=== PATIENT | male | born 1980 | race Caucasian/White ===

== ENCOUNTER 2016-12-10 15:16 | Emergency (ER) | payer MEDICAID, OTHER ==
--- NOTE | 2016-12-10 16:05 | EDDOCDS ---
Nurse's Notes [facility] Name: Jenaro Wong Age: 36 yrs Sex: Male : 1980 Arrival Date: 12/10/2016 Time: 15:16 Bed Triage 1 Private MD: Ari Kelly W Diagnosis: Unilateral inguinal hernia, without obstruction or gangrene-RIGHT Presentation: 12/10 15:20 Presenting complaint: Patient states: "I think I have a hernia." Reports sudden onset ead of rlq pain after heavy lifting at work. Adult Sepsis Screening: The patient does not have new or worsening altered mentation. Patient's respiratory rate is less than 22. Systolic blood pressure is greater than 100. Patient has a qSOFA score of 0- Negative Sepsis Screen. Suicide/Homicide risk assessment- the patient denies having any suicidal and/or homicidal ideations and does not present with any other emotional, behavioral or mental health complaints. 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 Transition of care: patient was not received from another setting of care. 15:20 Acuity: ZEENAT Level 3 ead 15:20 Method Of Arrival: Walkin/Carried/Asstd ead Triage Assessment: 15:21 General: Appears in no apparent distress, comfortable, Behavior is appropriate for age, ead cooperative. Pain: Location: right lower quadrant Pain currently is 4 out of 10 on a pain scale. GI: Reports lower abdominal pain. GI: Reports noticed swelling to site of pain when pain initially started, states swelling has gone down since. Derm: Skin is pink, warm & dry. 15:22 Pt Declines HIV testing. ead Historical: - Allergies: no known allergies; - Home Meds: 1. none - PMHx: none; - PSHx: none; - Social history: Smoking status: Patient uses tobacco products, current every day smoker. No barriers to communication noted, The patient speaks fluent Eritrean, Speaks appropriately for age. - Family history: Not pertinent. - : The pt / caregiver states he / she is not on anticoagulants. Home medication list is obtained from the patient. - Exposure Risk Screening:: None identified. Screenin:01 Screening information is obtained from the patient. Fall risk: No risks identified. ead Assistance ADL's: requires no assistance with activities of daily living. Abuse/DV Screen: The patient / caregiver reports he/she is: not in a situation that causes fear, pain or injury. Nutritional screening: No deficits noted. Advance Directives: Currently, there is no health care proxy. There is no Power of [employer]. home support is adequate. Assessment: 16:01 General: Appears in no apparent distress, comfortable. Respiratory: Airway is patent ead Respiratory effort is even, unlabored. GI: Abdomen is non- distended. GI: Reports lower abdominal pain. Derm: Skin is pink, warm & dry. Vital Signs: 15:17 BP 131 / 78; Pulse 80; Resp 18 S; Temp 97.6(O); Pulse Ox 98% on R/A; Weight 78.47 kg dd6 (R); Height 5 ft. 6 in. (167.64 cm) (R); 15:17 Body Mass Index 27.92 (78.47 kg, 167.64 cm) dd6 Vitals: 15:17 Log In Time: December 10, 2016 at 15:15. dd6 ED Course: 15:16 Patient visited by Andre Black PCA. dd6 15:16 Patient moved to Waiting dd6 15:17 Ari Kelly is Private Physician. dd6 15:18 Patient moved to Pre RCE dd6 15:21 Triage Initiated ead 15:37 Patient moved to Triage 1 ead 15:40 Inocente Ventura PA is PHCP. btw 15:40 Bashir Kent DO is Attending Physician. btw 15:40 Patient visited by Inocente Ventura PA. btw 15:50 Pasquale Lindsey DO is Referral Physician. btw 16:01 The patient / caregiver is instructed regarding the plan of care and ED course. ead 16:01 No IV's were initiated during this patient's visit. No procedures done that require ead assistance. Order Results: There are currently no results for this order. Outcome: 15:51 Discharge ordered by Provider. btw 16:01 Discharge Assessment: Patient awake and alert. obeys commands, Oriented to person, ead place and time. patient administered narcotics - no. The following High Risk Discharge criteria are identified: None. Discharged to home ambulatory. Condition: unchanged. Discharge instructions given to patient, Instructed on discharge instructions, follow up and referral plans. Demonstrated understanding of instructions, Pt was receptive of discharge instructions/ teaching. No special radiology studies were completed. Property sent home with patient. 16:03 Patient left the ED. ead Signatures: Andre Black, MUSIC JOURNALIST MUSIC JOURNALIST dd6 Inocente Ventura PA PA btw Dunaway, Emily,RN RN ead MTDD
--- NOTE | 2016-12-10 16:05 | EDDOCDS ---
Physician Documentation [facility] Name: Jenaro Wong Age: 36 yrs Sex: Male : 1980 Arrival Date: 12/10/2016 Time: 15:16 Bed Triage 1 Private MD: Ari Kelly W Disposition: 12/10/16 15:51 Discharged to Home/Self Care. Impression: Unilateral inguinal hernia, without obstruction or gangrene - RIGHT. - Condition is Stable. - Discharge Instructions: Inguinal Hernia, Adult. - Medication Reconciliation, Local Pharmacy Hours, Work Release Form - 1 day form. - Follow up: Pasquale Lindsey DO; When: Call to arrange an appointment; Reason: Further diagnostic work-up, Recheck today's complaints, Continuance of care. - Problem is new. - Symptoms are unchanged. Historical: - Allergies: no known allergies; - Home Meds: 1. none - PMHx: none; - PSHx: none; - Social history: Smoking status: Patient uses tobacco products, current every day smoker. No barriers to communication noted, The patient speaks fluent Israeli, Speaks appropriately for age. - Family history: Not pertinent. - : The pt / caregiver states he / she is not on anticoagulants. Home medication list is obtained from the patient. - Exposure Risk Screening:: None identified. Vital Signs: 12/10 15:17 BP 131 / 78; Pulse 80; Resp 18 S; Temp 97.6(O); Pulse Ox 98% on R/A; Weight 78.47 kg / dd6 173 lbs (R); Height 5 ft. 6 in. (167.64 cm) (R); 15:17 Body Mass Index 27.92 (78.47 kg, 167.64 cm) dd6 Signatures: Inocente Ventura PA PA btw Dunaway, Emily,RN RN ead MTDD
--- NOTE | 2016-12-12 17:04 | EDDOCDS ---
Physician Documentation [facility] Name: Jenaro Wong Age: 36 yrs Sex: Male : 1980 Arrival Date: 12/10/2016 Time: 15:16 Bed Triage 1 Private MD: Ari Kelly W Disposition: 12/10/16 15:51 Discharged to Home/Self Care. Impression: Unilateral inguinal hernia, without obstruction or gangrene - RIGHT. - Condition is Stable. - Discharge Instructions: Inguinal Hernia, Adult. - Medication Reconciliation, Local Pharmacy Hours, Work Release Form - 1 day form. - Follow up: Pasquale Lindsey DO; When: Call to arrange an appointment; Reason: Further diagnostic work-up, Recheck today's complaints, Continuance of care. - Problem is new. - Symptoms are unchanged. Historical: - Allergies: no known allergies; - Home Meds: 1. none - PMHx: none; - PSHx: none; - Social history: Smoking status: Patient uses tobacco products, current every day smoker. No barriers to communication noted, The patient speaks fluent Citizen Of [place], Speaks appropriately for age. - Family history: Not pertinent. - : The pt / caregiver states he / she is not on anticoagulants. Home medication list is obtained from the patient. - Exposure Risk Screening:: None identified. Vital Signs: 12/10 15:17 BP 131 / 78; Pulse 80; Resp 18 S; Temp 97.6(O); Pulse Ox 98% on R/A; Weight 78.47 kg / dd6 173 lbs (R); Height 5 ft. 6 in. (167.64 cm) (R); 15:17 Body Mass Index 27.92 (78.47 kg, 167.64 cm) dd6 MDM: 16:08 Financial registration complete. zo 16:08 [facility] Payment Agreement was scanned into [employer] and attached to record. zo 12/11 02:42 T-Sheet-- Draft Copy was scanned into [employer] and attached to record. hs2 Signatures: Amadou Mcbride Brandon, PA PA btw Dunaway, Emily,RN RN eaMaura Smith, Reg Reg hs2 The chart was reviewed and I authenticate all verbal orders and agree with the evaluation and treatment provided.Attachments: 12/10 16:08 [facility] [place] Payment Agreement zo 12/11 02:42 T-Sheet-- Draft Copy hs2 Chart Complete MTDD
--- NOTE | 2016-12-12 17:04 | EDDOCDS ---
Nurse's Notes [facility] Name: Jenaro Wong Age: 36 yrs Sex: Male : 1980 Arrival Date: 12/10/2016 Time: 15:16 Bed Triage 1 Private MD: Ari Kelly W Diagnosis: Unilateral inguinal hernia, without obstruction or gangrene-RIGHT Presentation: 12/10 15:20 Presenting complaint: Patient states: "I think I have a hernia." Reports sudden onset ead of rlq pain after heavy lifting at work. Adult Sepsis Screening: The patient does not have new or worsening altered mentation. Patient's respiratory rate is less than 22. Systolic blood pressure is greater than 100. Patient has a qSOFA score of 0- Negative Sepsis Screen. Suicide/Homicide risk assessment- the patient denies having any suicidal and/or homicidal ideations and does not present with any other emotional, behavioral or mental health complaints. 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 Transition of care: patient was not received from another setting of care. 15:20 Acuity: ZEENAT Level 3 ead 15:20 Method Of Arrival: Walkin/Carried/Asstd ead Triage Assessment: 15:21 General: Appears in no apparent distress, comfortable, Behavior is appropriate for age, ead cooperative. Pain: Location: right lower quadrant Pain currently is 4 out of 10 on a pain scale. GI: Reports lower abdominal pain. GI: Reports noticed swelling to site of pain when pain initially started, states swelling has gone down since. Derm: Skin is pink, warm & dry. 15:22 Pt Declines HIV testing. ead Historical: - Allergies: no known allergies; - Home Meds: 1. none - PMHx: none; - PSHx: none; - Social history: Smoking status: Patient uses tobacco products, current every day smoker. No barriers to communication noted, The patient speaks fluent Yoruba, Speaks appropriately for age. - Family history: Not pertinent. - : The pt / caregiver states he / she is not on anticoagulants. Home medication list is obtained from the patient. - Exposure Risk Screening:: None identified. Screenin:01 Screening information is obtained from the patient. Fall risk: No risks identified. ead Assistance ADL's: requires no assistance with activities of daily living. Abuse/DV Screen: The patient / caregiver reports he/she is: not in a situation that causes fear, pain or injury. Nutritional screening: No deficits noted. Advance Directives: Currently, there is no health care proxy. There is no Power of [employer] Practitioner. home support is adequate. Assessment: 16:01 General: Appears in no apparent distress, comfortable. Respiratory: Airway is patent ead Respiratory effort is even, unlabored. GI: Abdomen is non- distended. GI: Reports lower abdominal pain. Derm: Skin is pink, warm & dry. Vital Signs: 15:17 BP 131 / 78; Pulse 80; Resp 18 S; Temp 97.6(O); Pulse Ox 98% on R/A; Weight 78.47 kg dd6 (R); Height 5 ft. 6 in. (167.64 cm) (R); 15:17 Body Mass Index 27.92 (78.47 kg, 167.64 cm) dd6 Vitals: 15:17 Log In Time: December 10, 2016 at 15:15. dd6 ED Course: 15:16 Patient visited by Andre Black PCA. dd6 15:16 Patient moved to Waiting dd6 15:17 Ari Kelly is Private Physician. dd6 15:18 Patient moved to Pre RCE dd6 15:21 Triage Initiated ead 15:37 Patient moved to Triage 1 ead 15:40 Inocente Ventura PA is PHCP. btw 15:40 Bashir Kent DO is Attending Physician. btw 15:40 Patient visited by Inocente Ventura PA. btw 15:50 Pasquale Lindsey DO is Referral Physician. btw 16:01 The patient / caregiver is instructed regarding the plan of care and ED course. ead 16:01 No IV's were initiated during this patient's visit. No procedures done that require ead assistance. 16:08 [facility] [place] Agreement was scanned into [employer] and attached to record. zo 12/11 02:42 T-Sheet-- Draft Copy was scanned into [employer] and attached to record. hs2 Order Results: There are currently no results for this order. Outcome: 12/10 15:51 Discharge ordered by Provider. btw 16:01 Discharge Assessment: Patient awake and alert. obeys commands, Oriented to person, ead place and time. patient administered narcotics - no. The following High Risk Discharge criteria are identified: None. Discharged to home ambulatory. Condition: unchanged. Discharge instructions given to patient, Instructed on discharge instructions, follow up and referral plans. Demonstrated understanding of instructions, Pt was receptive of discharge instructions/ teaching. No special radiology studies were completed. Property sent home with patient. 16:03 Patient left the ED. ead Signatures: Amadou Mcbride Daniell, GPS NAVIGATION INSTALLER GPS NAVIGATION INSTALLER dd6 Inocente Ventura PA PA btw Dunaway, Emily,RN RN ead Maura Spence, Reg Reg hs2 Chart Complete MTDD
--- NOTE | 2016-12-12 17:04 | EDDOCDS ---
Physician Documentation [facility] Name: Jenaro Wong Age: 36 yrs Sex: Male : 1980 Arrival Date: 12/10/2016 Time: 15:16 Bed Triage 1 Private MD: Ari Kelly W Disposition: 12/10/16 15:51 Discharged to Home/Self Care. Impression: Unilateral inguinal hernia, without obstruction or gangrene - RIGHT. - Condition is Stable. - Discharge Instructions: Inguinal Hernia, Adult. - Medication Reconciliation, Local Pharmacy Hours, Work Release Form - 1 day form. - Follow up: Pasquale Lindsey DO; When: Call to arrange an appointment; Reason: Further diagnostic work-up, Recheck today's complaints, Continuance of care. - Problem is new. - Symptoms are unchanged. Historical: - Allergies: no known allergies; - Home Meds: 1. none - PMHx: none; - PSHx: none; - Social history: Smoking status: Patient uses tobacco products, current every day smoker. No barriers to communication noted, The patient speaks fluent Emirati, Speaks appropriately for age. - Family history: Not pertinent. - : The pt / caregiver states he / she is not on anticoagulants. Home medication list is obtained from the patient. - Exposure Risk Screening:: None identified. Vital Signs: 12/10 15:17 BP 131 / 78; Pulse 80; Resp 18 S; Temp 97.6(O); Pulse Ox 98% on R/A; Weight 78.47 kg / dd6 173 lbs (R); Height 5 ft. 6 in. (167.64 cm) (R); 15:17 Body Mass Index 27.92 (78.47 kg, 167.64 cm) dd6 MDM: 16:08 Financial registration complete. zo 16:08 [facility] Payment Agreement was scanned into [employer] and attached to record. zo 12/11 02:42 T-Sheet-- Draft Copy was scanned into [employer] and attached to record. hs2 Signatures: Amadou Mcbride Brandon, PA PA btw Dunaway, Emily,RN RN eaMaura Smith, Reg Reg hs2 The chart was reviewed and I authenticate all verbal orders and agree with the evaluation and treatment provided.Attachments: 12/10 16:08 [place] [place] Agreement zo 12/11 02:42 T-Sheet-- Draft Copy hs2 Chart Complete MTDD
== END 2016-12-10 16:03 | disposition home or self-care (01) ==
LOC: M ED 15:16
DX: K40.90 Unilateral inguinal hernia, without obstruction or gangrene, not specified as recurrent (principal); Z72.0 Tobacco use

== ENCOUNTER 2016-12-17 17:55 | Emergency (ER) | payer OTHER ==
[2016-12-17] MEDS ORDERED: KETOROLAC 30 MG/ML VIAL (J1885) As Ordered ONE (21:00)
[2016-12-17 21:08] LABS: BASO % 0.4 % (0.0-1.0); EOS # 0.2 K/mm3 (0.0-0.50); EOS % 2.6 % (0.0-3.0); LARGE UNSTAINED CELL # 0.1 K/mm3 (0.0-0.4); LARGE UNSTAINED CELL % 1.7 % (0.0-4.0); LYMPH # 1.8 K/mm3 (1.5-4.5); LYMPH % 25.1 % (24.0-44.0); MEAN CORPUSCULAR HEMOGLOBIN 32.3 pg (27.0-33.0); MEAN CORPUSCULAR VOLUME 89.9 fl (80.0-96.0); MONO # 0.3 K/mm3 (0.0-0.8); MONO % 4.1 % (0.0-5.0); NEUTROPHILS # 4.8 K/mm3 (1.8-7.7); NEUTROPHILS % 66.1 % (36.0-66.0); PLATELET COUNT, AUTOMATED 189 k/mm3 (150-450); WHITE BLOOD COUNT 7.2 K/mm3 (4.0-10.0)
[2016-12-17 21:31] LABS: ALBUMIN 4.4 GM/DL (3.2-5.2); ALBUMIN/GLOBULIN RATIO 1.63 (1.00-1.93); ALKALINE PHOSPHATASE 68 U/L (45-117); ALT/SGPT 47 U/L (12-78); AMYLASE 49 U/L (25-115); ANION GAP 8 MEQ/L (8-16); AST/SGOT 23 U/L (15-37); BILIRUBIN,DIRECT 0.1 MG/DL (0.0-0.2); BILIRUBIN,TOTAL 0.5 MG/DL (0.2-1.0); BLOOD UREA NITROGEN 14 MG/DL (7-18); CALCIUM LEVEL 9.1 MG/DL (8.5-10.1); CARBON DIOXIDE LEVEL 30 MEQ/L (21-32); CHLORIDE LEVEL 104 MEQ/L (98-107); CREATININE FOR GFR 1.02 MG/DL (0.70-1.30); GLOMERULAR FILTRATION RATE > 60.0 (>60); GLUCOSE, FASTING 88 MG/DL (70-105); POTASSIUM SERUM 4.1 MEQ/L (3.5-5.1); SODIUM LEVEL 142 MEQ/L (136-145); TOTAL PROTEIN 7.1 GM/DL (6.4-8.2)
[2016-12-17] MEDS ORDERED: ISOVUE-370 76% 100ML VIAL (Q9967) As Ordered ONE (22:04)
--- NOTE | 2016-12-17 23:00 | REPUSA ---
CT of the abdomen and pelvis with contrast Clinical statement: Pain. Rule out inguinal hernia. Technique: Multiple axial CT images were obtained from the base of the lungs through the floor of the pelvis utilizing 5 mm axial slices after administration of nonionic intravenous contrast. Coronal an d sagittal reconstructions were also obtained. No comparison is available. Findings: Chest: The visualized lung bases are clear. Abdomen: The liver, spleen, pancreas, kidneys, gallbladder, and adrenal glands are unremarkable. The aorta is within normal limits. There is no evidence of abdominal lymphadenopathy or ascites. Pelvis: The bowel is unremarkable, with no obstructive or inflammatory changes. The appendix is egt l. The urinary bladder is within normal limits. The other pelvic structures appear grossly intact. Th ere is no evidence of pelvic lymphadenopathy or ascites. There is no evidence of any hernias. Bones: There are no suspicious osseous abnormalities seen. Impression: Unremarkable CT examination of the abdomen and pelvis.
[2016-12-17] MEDS ORDERED: traMADol 50 MG TAB As Ordered ONE (23:43)
--- NOTE | 2016-12-17 23:55 | EDDOCDS ---
Nurse's Notes [facility] Name: Jenaro Wong Age: 36 yrs Sex: Male : 1980 Arrival Date: 12/17/2016 Time: 17:55 Bed I5 / M5 Private MD: Ari Kelly Diagnosis: Lower abdominal pain, unspecified-RIGHT, POSSIBLE MUSCLE STRAIN Presentation: 12/17 18:05 Presenting complaint: Patient states: pt c/o rlq pain since last Saturday after heavy ead lifting. Pt seen here then and referred to follow up with Dr. Lindsey. Appointment with Dr. Lindsey scheduled for the of this month. Pt reports pain is worsened. Adult Sepsis Screening: The patient does not have new or worsening altered mentation. Patient's respiratory rate is less than 22. Systolic blood pressure is greater than 100. Patient has a qSOFA score of 0- Negative Sepsis Screen. Suicide/Homicide risk assessment- the patient denies having any suicidal and/or homicidal ideations and does not present with any other emotional, behavioral or mental health complaints. Status: Patient is not a field service manager or dependent. Transition of care: patient was not received from another setting of care. 18:05 Acuity: ZEENAT Level 3 ead 18:05 Method Of Arrival: Walkin/Carried/Asstd ead Triage Assessment: 18:06 General: Appears in no apparent distress, uncomfortable, Behavior is appropriate for ead age, cooperative. Pain: Location: right lower quadrant, right femoral area and right inguinal area Pain currently is 7 out of 10 on a pain scale. HIV screening NA for this visit Offered previously. GI: Reports lower abdominal pain, nausea, Denies vomiting. : Denies pain with urination. Derm: Skin is pink, warm & dry. Historical: - Allergies: no known allergies; - Home Meds: 1. none - PMHx: none; - PSHx: none; - Social history: Smoking status: Patient uses tobacco products, current every day smoker. No barriers to communication noted, The patient speaks fluent Bruneian, Speaks appropriately for age. - Family history: Not pertinent. - : The pt / caregiver states he / she is not on anticoagulants. Home medication list is obtained from the patient. - Exposure Risk Screening:: None identified. Screenin:16 Screening information is obtained from the patient. Fall risk: No risks identified. jmb Assistance ADL's: requires no assistance with activities of daily living. Abuse/DV Screen: The patient / caregiver reports he/she is: not in a situation that causes fear, pain or injury. Nutritional screening: No deficits noted. home support is adequate. 23:53 Advance Directives: Currently, there is no health care proxy. There is no active DNR cp1 order. Assessment: 22:16 General: Appears in no apparent distress, Behavior is appropriate for age, cooperative. jmb Pain: Location: pelvis Pain currently is 3 out of 10 on a pain scale. Neurological: Level of Consciousness is awake, alert, obeys commands, Oriented to person, place, time, Speech is normal, Facial symmetry appears normal, Facial symmetry: tongue is midline. Cardiovascular: Capillary refill < 3 seconds Heart tones present Pulses are all present. Rhythm is regular. Respiratory: Airway is patent Respiratory effort is even, unlabored, Respiratory pattern is regular, symmetrical, Breath sounds are clear bilaterally. GI: Abdomen is non- distended Bowel sounds present X 4 quads. Abd is soft X 4 quads. Derm: Skin is pink, warm & dry. Musculoskeletal: Range of motion intact in all extremities. 23:05 General: Appears in no apparent distress, comfortable, Behavior is appropriate for age, jmb cooperative. Neurological: Level of Consciousness is awake, alert, obeys commands, Oriented to person, place, time. Respiratory: Airway is patent Respiratory effort is even, unlabored, Respiratory pattern is regular, symmetrical. Vital Signs: 17:56 BP 138 / 80; Pulse 74; Resp 18 S; Temp 99.3(O); Pulse Ox 100% on R/A; Weight 78.47 kg gr2 (R); Height 5 ft. 6 in. (167.64 cm) (R); Pain 6/10; 19:35 BP 126 / 76; Pulse 55; Resp 18; Temp 98.7(TE); Pulse Ox 98% on R/A; Pain 7/10; ar3 23:52 BP 135 / 67; Pulse 66; Resp 18; Temp 97.9(O); Pulse Ox 97% on R/A; Pain 3/10; cp1 17:56 Body Mass Index 27.92 (78.47 kg, 167.64 cm) gr2 Vitals: 17:56 Log In Time: December 17, 2016 at 17:56. gr2 ED Course: 17:56 Patient visited by Finn Pierre. gr2 17:56 Ari Kelly is Private Physician. gr2 17:56 Patient moved to Waiting gr2 17:58 Patient visited by Finn Pierre. gr2 17:58 Patient moved to Pre RCE gr2 18:06 Triage Initiated ead 19:37 Patient visited by Haley Thomas PCA. ar3 19:45 UA Sent. bnb 20:14 Patient moved to Triage 1 ms18 20:29 Son Bernard RPA-C is PHCP. ck7 20:29 Eduin William DO is Attending Physician. ck7 20:29 Patient visited by Son Bernard RPA-C. ck7 20:45 Patient moved to I5 / M5 ar3 20:45 Urine Culture Sent. ar3 20:59 Amylase Sent. cp1 20:59 Basic Metabolic Profile Sent. cp1 20:59 CBC with Diff Sent. cp1 20:59 Lipase Sent. cp1 20:59 Liver Profile Sent. cp1 20:59 Inserted saline lock: 20 gauge in left antecubital area and blood collected. The cp1 patient tolerated the procedure well. 21:04 Patient visited by Son Bernard RPA-C. ck7 21:40 Patient visited by Son Bernard RPA-C. ck7 21:47 [facility] Payment Agreement was scanned into [employer] and attached to record. zo 22:16 The patient / caregiver is instructed regarding the plan of care and ED course. jmb 22:16 No procedures done that require assistance. jmb 22:17 Patient visited by Jaren Abebe RN. jmb 22:34 Patient visited by Goldie Blake LPN. cp1 23:05 Patient visited by Jaren Abebe RN. jmb 23:08 CT ABD & PELVIS: IV Contrast Only Returned. EDMS 23:36 Patient visited by Son Bernard RPA-C. ck7 23:43 Ari Kelly is Referral Physician. ck7 23:53 Discontinued lock bleeding controlled, pressure dressing applied, No redness/swelling cp1 at site. Administered Medications: 21:12 Drug: NS 0.9% 1000 ml [sodium chloride 0.9 % intravenous solution] Route: IV; Rate: jmb bolus; Site: left antecubital; 23:53 Follow up: IV Status: Completed infusion cp1 21:12 Drug: ketorolac 30 mg [ketorolac 30 mg/mL (1 mL) injection solution (1 mL)] Route: IVP; jmb Site: left antecubital; 22:34 Follow up: Response: Pain is decreased cp1 23:53 Follow up: Response: Pain is decreased cp1 23:44 Drug: traMADol 50mg- 4 pack 1 packets [tramadol 50 mg tablet (1 tabs)] {Co-Signature: cp1 jmb (Jaren Abebe RN).} Route: PO; 23:53 Follow up: Response: Pt left department before re-evaluation is appropriate cp1 Order Results: Lab Order: UA; SPEC'M 12/17/16 19:43 Test: APPEARANCE, URINE; Value: CLEAR; Range: CLEAR; Status: F Test: COLOR, URINE; Value: STRAW; Range: YELLOW; Status: F Test: PH,URINE; Value: 6.0; Range: 5.0-9.0; Units: UNITS; Status: F Test: SPECIFIC GRAVITY URINE AUTO; Value: 1.006; Range: 1.002-1.035; Status: F Test: PROTEIN, URINE AUTO; Value: NEGATIVE; Range: NEGATIVE; Units: mg/dL; Status: F Test: GLUCOSE, URINE (UA) AUTO; Value: NEGATIVE; Range: NEGATIVE; Units: mg/dL; Status: F Test: KETONE, URINE AUTO; Value: NEGATIVE; Range: NEGATIVE; Units: mg/dL; Status: F Test: UROBILINOGEN, URINE AUTO; Value: 0.2; Range: 0.0-2.0; Units: mg/dL; Status: F Test: BILIRUBIN, URINE AUTO; Value: NEGATIVE; Range: NEGATIVE; Status: F Test: NITRITE, URINE AUTO; Value: NEGATIVE; Range: NEGATIVE; Status: F Test: LEUKOCYTE ESTERASE, URINE AUTO; Value: NEGATIVE; Range: NEGATIVE; Status: F Test: BLOOD, URINE BLOOD; Value: 1+; Range: NEGATIVE; Abnormal: Above high normal; Status: F Test: WBC, URINE AUTO; Value: 0; Range: 0-3; Units: /HPF; Status: F Test: RBC, URINE AUTO; Value: 3; Range: 0-3; Units: /HPF; Status: F Test: BACTERIA, URINE AUTO; Value: NEGATIVE; Range: NEGATIVE; Status: F Test: SQUAMOUS EPITHELIAL CELL UR AU; Value: 0; Range: 0-6; Units: /HPF; Status: F Test: HYALINE CAST, URINE AUTO; Value: 0; Range: 0-1; Units: /LPF; Status: F Lab Order: Amylase; SPEC'M 12/17/16 20:47 Test: AMYLASE; Value: 49; Range: 25-115; Units: U/L; Status: F Lab Order: Basic Metabolic Profile; SPEC'M 12/17/16 20:47 Test: GLUCOSE, FASTING; Value: 88; Range: 70-105; Units: MG/DL; Status: F Test: BLOOD UREA NITROGEN; Value: 14; Range: 7-18; Units: MG/DL; Status: F Test: CREATININE FOR GFR; Value: 1.02; Range: 0.70-1.30; Units: MG/DL; Status: F Test: GLOMERULAR FILTRATION RATE; Value: > 60.0; Range: >60; Status: F Test: SODIUM LEVEL; Value: 142; Range: 136-145; Units: MEQ/L; Status: F Test: POTASSIUM SERUM; Value: 4.1; Range: 3.5-5.1; Units: MEQ/L; Status: F Test: CHLORIDE LEVEL; Value: 104; Range: 98-107; Units: MEQ/L; Status: F Test: CARBON DIOXIDE LEVEL; Value: 30; Range: 21-32; Units: MEQ/L; Status: F Test: ANION GAP; Value: 8; Range: 8-16; Units: MEQ/L; Status: F Test: CALCIUM LEVEL; Value: 9.1; Range: 8.5-10.1; Units: MG/DL; Status: F Test Note: ; Units are mL/min/1.73 m2 Chronic Kidney Disease Staging per NKF: Stage I & II GFR >=60 Normal to Mildly Decreased Stage III GFR 30-59 Moderately Decreased Stage IV GFR 15-29 Severely Decreased Stage V GFR <15 Very Little GFR Left ESRD GFR <15 on [employer] Lab Order: CBC with Diff; SPEC'M 12/17/16 20:47 Test: WHITE BLOOD COUNT; Value: 7.2; Range: 4.0-10.0; Units: K/mm3; Status: F Test: RED BLOOD COUNT; Value: 5.20; Range: 4.30-6.10; Units: M/mm3; Status: F Test: HEMOGLOBIN; Value: 16.8; Range: 14.0-18.0; Units: g/dl; Status: F Test: HEMATOCRIT; Value: 46.7; Range: 42.0-52.0; Units: %; Status: F Test: MEAN CORPUSCULAR VOLUME; Value: 89.9; Range: 80.0-96.0; Units: fl; Status: F Test: MEAN CORPUSCULAR HEMOGLOBIN; Value: 32.3; Range: 27.0-33.0; Units: pg; Status: F Test: MEAN CORPUSCULAR HGB CONC; Value: 36.0; Range: 32.0-36.5; Units: g/dl; Status: F Test: RED CELL DISTRIBUTION WIDTH; Value: 12.0; Range: 11.5-14.5; Units: %; Status: F Test: PLATELET COUNT, AUTOMATED; Value: 189; Range: 150-450; Units: k/mm3; Status: F Test: NEUTROPHILS %; Value: 66.1; Range: 36.0-66.0; Abnormal: Above high normal; Units: %; Status: F Test: LYMPH %; Value: 25.1; Range: 24.0-44.0; Units: %; Status: F Test: MONO %; Value: 4.1; Range: 0.0-5.0; Units: %; Status: F Test: EOS %; Value: 2.6; Range: 0.0-3.0; Units: %; Status: F Test: BASO %; Value: 0.4; Range: 0.0-1.0; Units: %; Status: F Test: LARGE UNSTAINED CELL %; Value: 1.7; Range: 0.0-4.0; Units: %; Status: F Test: NEUTROPHILS #; Value: 4.8; Range: 1.8-7.7; Units: K/mm3; Status: F Test: LYMPH #; Value: 1.8; Range: 1.5-4.5; Units: K/mm3; Status: F Test: MONO #; Value: 0.3; Range: 0.0-0.8; Units: K/mm3; Status: F Test: EOS #; Value: 0.2; Range: 0.0-0.50; Units: K/mm3; Status: F Test: BASO #; Value: 0.0; Range: 0.0-0.2; Units: K/mm3; Status: F Test: LARGE UNSTAINED CELL #; Value: 0.1; Range: 0.0-0.4; Units: K/mm3; Status: F Lab Order: Lipase; SPEC'M 12/17/16 20:47 Test: LIPASE; Value: 85; Range: 73-393; Units: U/L; Status: F Lab Order: Liver Profile; SPEC'M 12/17/16 20:47 Test: AST/SGOT; Value: 23; Range: 15-37; Units: U/L; Status: F Test: ALT/SGPT; Value: 47; Range: 12-78; Units: U/L; Status: F Test: ALKALINE PHOSPHATASE; Value: 68; Range: 45-117; Units: U/L; Status: F Test: BILIRUBIN,TOTAL; Value: 0.5; Range: 0.2-1.0; Units: MG/DL; Status: F Test: BILIRUBIN,DIRECT; Value: 0.1; Range: 0.0-0.2; Units: MG/DL; Status: F Test: TOTAL PROTEIN; Value: 7.1; Range: 6.4-8.2; Units: GM/DL; Status: F Test: ALBUMIN; Value: 4.4; Range: 3.2-5.2; Units: GM/DL; Status: F Test: ALBUMIN/GLOBULIN RATIO; Value: 1.63; Range: 1.00-1.93; Status: F Radiology Order: CT ABD & PELVIS: IV Contrast Only Test: CT ABD & PELVIS: IV Contrast Only REASON FOR EXAMINATION: R/O INGUINAL HERNIA; ; CT of the abdomen and pelvis with contrast; Clinical statement: Pain. Rule out inguinal hernia.; Technique: Multiple axial CT images were obtained from the base of the lungs through the floor of the; pelvis utilizing 5 mm axial slices after administration of nonionic intravenous contrast. Coronal an; d sagittal reconstructions were also obtained.; No comparison is available.; Findings:; Chest: The visualized lung bases are clear.; Abdomen: The liver, spleen, pancreas, kidneys, gallbladder, and adrenal glands are unremarkable. The; aorta is within normal limits. There is no evidence of abdominal lymphadenopathy or ascites.; Pelvis: The bowel is unremarkable, with no obstructive or inflammatory changes. The appendix is egt; l. The urinary bladder is within normal limits. The other pelvic structures appear grossly intact. Th; ere is no evidence of pelvic lymphadenopathy or ascites. There is no evidence of any hernias.; Bones: There are no suspicious osseous abnormalities seen.; Impression: Unremarkable CT examination of the abdomen and pelvis.; ; Outcome: 23:43 Discharge ordered by Provider. ck7 23:54 Discharge Assessment: Patient awake, alert and oriented x 3. No cognitive and/or cp1 functional deficits noted. Patient verbalized understanding of disposition instructions. patient administered narcotics - no. The following High Risk Discharge criteria are identified: None. Discharged to home ambulatory. Condition: stable Condition: improved. Discharge instructions given to patient, Instructed on discharge instructions, follow up and referral plans. medication usage, no driving heavy equipment, Demonstrated understanding of instructions, medications, Pt was receptive of discharge instructions/ teaching. Prescriptions given X 2. CT Study completed. Property sent home with patient. :Personal belongings accompany Pt. 23:54 Patient left the ED. cp1 Signatures: Dispatcher [employer] EDMS Amadou Mcbride Alicia, BOTTOM PRESSER BOTTOM PRESSER ar3 Goldie Blake,PAPERHANGER ASSISTANT PAPERHANGER ASSISTANT cp1 Son Bernard, RPA-C RPA-Cck7 Finn Pierre gr2 Jaren Abebe,RN RN Gauri Gregorio RN RN ead Smith, Mallory, RN RN ms18 Eve Abebe, BOTTOM PRESSER BOTTOM PRESSER bnb Jaren brownlee MTDD
--- NOTE | 2016-12-17 23:55 | EDDOCDS ---
Physician Documentation [facility] Name: Jenaro Wong Age: 36 yrs Sex: Male : 1980 Arrival Date: 12/17/2016 Time: 17:55 Bed I5 / M5 Private MD: Ari Kelly Disposition: 12/17/16 23:43 Discharged to Home/Self Care. Impression: Lower abdominal pain, unspecified - RIGHT, POSSIBLE MUSCLE STRAIN. - Condition is Stable. - Discharge Instructions: Abdominal Pain, Adult. - Prescriptions for Ibuprofen 600 mg Oral Tablet - take 1 tablet by ORAL route every 6 hours As needed take with food; 30 tablet. Tramadol 50 mg Oral Tablet - take 1 tablet by ORAL route 4 times per day As needed MDD: 4 tabs; 10 tablet. - Medication Reconciliation, Local Pharmacy Hours form. - Follow up: Ari Kelly; When: 2 - 3 days; Reason: Recheck today's complaints, Continuance of care. - Problem is new. - Symptoms have improved. - Notes: USE MEDICATIONS INSTRUTCED, FOLLOW UP WITH YOUR DOCTOR, RETURN TO THE ER IF THE SYMPTOMS WORSEN OR BECOME CONCERNING Historical: - Allergies: no known allergies; - Home Meds: 1. none - PMHx: none; - PSHx: none; - Social history: Smoking status: Patient uses tobacco products, current every day smoker. No barriers to communication noted, The patient speaks fluent Korean, Speaks appropriately for age. - Family history: Not pertinent. - : The pt / caregiver states he / she is not on anticoagulants. Home medication list is obtained from the patient. - Exposure Risk Screening:: None identified. Vital Signs: 12/17 17:56 BP 138 / 80; Pulse 74; Resp 18 S; Temp 99.3(O); Pulse Ox 100% on R/A; Weight 78.47 kg / gr2 173 lbs (R); Height 5 ft. 6 in. (167.64 cm) (R); Pain 6/10; 19:35 BP 126 / 76; Pulse 55; Resp 18; Temp 98.7(TE); Pulse Ox 98% on R/A; Pain 7/10; ar3 23:52 BP 135 / 67; Pulse 66; Resp 18; Temp 97.9(O); Pulse Ox 97% on R/A; Pain 3/10; cp1 17:56 Body Mass Index 27.92 (78.47 kg, 167.64 cm) gr2 MDM: 19:38 UA Ordered. EDMS 20:30 UA Reviewed. ck7 20:42 Undress patient appropriately for examination ordered. ck7 20:42 IV Saline Lock ordered. ck7 20:42 NS 0.9% 1000 ml IV at bolus once ordered. ck7 20:42 ketorolac 30 mg IVP once ordered. ck7 20:43 Amylase Ordered. EDMS 20:43 Basic Metabolic Profile Ordered. EDMS 20:43 CBC with Diff Ordered. EDMS 20:43 Lipase Ordered. EDMS 20:43 Liver Profile Ordered. EDMS 20:43 Urine Culture Ordered. EDMS 20:44 NOTHING BY MOUTH+DIET ordered. EDMS 20:44 CT ABD & PELVIS: IV Contrast Only Ordered. EDMS 21:40 CBC with Diff Reviewed. ck7 21:40 Amylase Reviewed. ck7 21:40 Basic Metabolic Profile Reviewed. ck7 21:40 Lipase Reviewed. ck7 21:40 Liver Profile Reviewed. ck7 21:46 Financial registration complete. zo 21:47 [facility] Payment Agreement was scanned into [employer] and attached to record. zo 23:22 CT ABD & PELVIS: IV Contrast Only Reviewed. ck7 23:37 traMADol 50mg- 4 pack 1 packets PO Per protocol; Dispense with patient. Take per ck7 package instructions. ordered. Administered Medications: 21:12 Drug: NS 0.9% 1000 ml [sodium chloride 0.9 % intravenous solution] Route: IV; Rate: jmb bolus; Site: left antecubital; 23:53 Follow up: IV Status: Completed infusion cp1 21:12 Drug: ketorolac 30 mg [ketorolac 30 mg/mL (1 mL) injection solution (1 mL)] Route: IVP; jmb Site: left antecubital; 22:34 Follow up: Response: Pain is decreased cp1 23:53 Follow up: Response: Pain is decreased cp1 23:44 Drug: traMADol 50mg- 4 pack 1 packets [tramadol 50 mg tablet (1 tabs)] {Co-Signature: cp1 jmb (Jaren Abebe RN).} Route: PO; 23:53 Follow up: Response: Pt left department before re-evaluation is appropriate cp1 Signatures: Dispatcher [employer] EDMS Reed, Zoeann zo Blake,Goldie,PAN DEVULCANIZER PAN DEVULCANIZER cp1 Son Bernard, RPA-C RPA-Cck7 Jaren Abebe,RN RN Gauri GregorioRN RN bruno brownlee The chart was reviewed and I authenticate all verbal orders and agree with the evaluation and treatment provided.Attachments: 21:47 [facility] Payment Agreement zo MTDD
--- NOTE | 2016-12-20 00:55 | EDDOCDS ---
Physician Documentation [facility] Name: Jenaro Wong Age: 36 yrs Sex: Male : 1980 Arrival Date: 12/17/2016 Time: 17:55 Bed I5 / M5 Private MD: Ari Kelly Disposition: 12/17/16 23:43 Discharged to Home/Self Care. Impression: Lower abdominal pain, unspecified - RIGHT, POSSIBLE MUSCLE STRAIN. - Condition is Stable. - Discharge Instructions: Abdominal Pain, Adult. - Prescriptions for Ibuprofen 600 mg Oral Tablet - take 1 tablet by ORAL route every 6 hours As needed take with food; 30 tablet. Tramadol 50 mg Oral Tablet - take 1 tablet by ORAL route 4 times per day As needed MDD: 4 tabs; 10 tablet. - Medication Reconciliation, Local Pharmacy Hours form. - Follow up: Ari Kelly; When: 2 - 3 days; Reason: Recheck today's complaints, Continuance of care. - Problem is new. - Symptoms have improved. - Notes: USE MEDICATIONS INSTRUTCED, FOLLOW UP WITH YOUR DOCTOR, RETURN TO THE ER IF THE SYMPTOMS WORSEN OR BECOME CONCERNING Historical: - Allergies: no known allergies; - Home Meds: 1. none - PMHx: none; - PSHx: none; - Social history: Smoking status: Patient uses tobacco products, current every day smoker. No barriers to communication noted, The patient speaks fluent [place] Verdean, Speaks appropriately for age. - Family history: Not pertinent. - : The pt / caregiver states he / she is not on anticoagulants. Home medication list is obtained from the patient. - Exposure Risk Screening:: None identified. Vital Signs: 12/17 17:56 BP 138 / 80; Pulse 74; Resp 18 S; Temp 99.3(O); Pulse Ox 100% on R/A; Weight 78.47 kg / gr2 173 lbs (R); Height 5 ft. 6 in. (167.64 cm) (R); Pain 6/10; 19:35 BP 126 / 76; Pulse 55; Resp 18; Temp 98.7(TE); Pulse Ox 98% on R/A; Pain 7/10; ar3 23:52 BP 135 / 67; Pulse 66; Resp 18; Temp 97.9(O); Pulse Ox 97% on R/A; Pain 3/10; cp1 17:56 Body Mass Index 27.92 (78.47 kg, 167.64 cm) gr2 MDM: 19:38 UA Ordered. EDMS 20:30 UA Reviewed. ck7 20:42 Undress patient appropriately for examination ordered. ck7 20:42 IV Saline Lock ordered. ck7 20:42 NS 0.9% 1000 ml IV at bolus once ordered. ck7 20:42 ketorolac 30 mg IVP once ordered. ck7 20:43 Amylase Ordered. EDMS 20:43 Basic Metabolic Profile Ordered. EDMS 20:43 CBC with Diff Ordered. EDMS 20:43 Lipase Ordered. EDMS 20:43 Liver Profile Ordered. EDMS 20:43 Urine Culture Ordered. EDMS 20:44 NOTHING BY MOUTH+DIET ordered. EDMS 20:44 CT ABD & PELVIS: IV Contrast Only Ordered. EDMS 21:40 CBC with Diff Reviewed. ck7 21:40 Amylase Reviewed. ck7 21:40 Basic Metabolic Profile Reviewed. ck7 21:40 Lipase Reviewed. ck7 21:40 Liver Profile Reviewed. ck7 21:46 Financial registration complete. zo 21:47 [facility] Payment Agreement was scanned into [employer] and attached to record. zo 23:22 CT ABD & PELVIS: IV Contrast Only Reviewed. ck7 23:37 traMADol 50mg- 4 pack 1 packets PO Per protocol; Dispense with patient. Take per ck7 package instructions. ordered. 12/18 10:56 T-Sheet-- Draft Copy was scanned into [employer] and attached to record. gb 10:56 Radiology Report was scanned into [employer] and attached to record. gb Administered Medications: 12/17 21:12 Drug: NS 0.9% 1000 ml [sodium chloride 0.9 % intravenous solution] Route: IV; Rate: jmb bolus; Site: left antecubital; 23:53 Follow up: IV Status: Completed infusion cp1 21:12 Drug: ketorolac 30 mg [ketorolac 30 mg/mL (1 mL) injection solution (1 mL)] Route: IVP; jmb Site: left antecubital; 22:34 Follow up: Response: Pain is decreased cp1 23:53 Follow up: Response: Pain is decreased cp1 23:44 Drug: traMADol 50mg- 4 pack 1 packets [tramadol 50 mg tablet (1 tabs)] {Co-Signature: cp1 jmb (Jaren Abebe RN).} Route: PO; 23:53 Follow up: Response: Pt left department before re-evaluation is appropriate cp1 Signatures: Dispatcher [employer] EDClaire Martinez, Reg Reg gb Reed, Goldie Brennan,SOFTWARE PERFORMANCE ENGINEER SOFTWARE PERFORMANCE ENGINEER cp1 Son Bernard, RPA-C RPA-Cck7 Jaren AbebeRN RN priscab Gauri Valdivia RN RN bruno brownlee The chart was reviewed and I authenticate all verbal orders and agree with the evaluation and treatment provided.Attachments: 21:47 [facility] Payment Agreement zo 12/18 10:56 T-Sheet-- Draft Copy gb Chart Complete MTDD
--- NOTE | 2016-12-20 00:55 | EDDOCDS ---
Nurse's Notes [facility] Name: Jenaro Wong Age: 36 yrs Sex: Male : 1980 Arrival Date: 12/17/2016 Time: 17:55 Bed I5 / M5 Private MD: Ari Kelly Diagnosis: Lower abdominal pain, unspecified-RIGHT, POSSIBLE MUSCLE STRAIN Presentation: 12/17 18:05 Presenting complaint: Patient states: pt c/o rlq pain since last Saturday after heavy ead lifting. Pt seen here then and referred to follow up with Dr. Lindsey. Appointment with Dr. Lindsey scheduled for the of this month. Pt reports pain is worsened. Adult Sepsis Screening: The patient does not have new or worsening altered mentation. Patient's respiratory rate is less than 22. Systolic blood pressure is greater than 100. Patient has a qSOFA score of 0- Negative Sepsis Screen. Suicide/Homicide risk assessment- the patient denies having any suicidal and/or homicidal ideations and does not present with any other emotional, behavioral or mental health complaints. 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 Transition of care: patient was not received from another setting of care. 18:05 Acuity: ZEENAT Level 3 ead 18:05 Method Of Arrival: Walkin/Carried/Asstd ead Triage Assessment: 18:06 General: Appears in no apparent distress, uncomfortable, Behavior is appropriate for ead age, cooperative. Pain: Location: right lower quadrant, right femoral area and right inguinal area Pain currently is 7 out of 10 on a pain scale. HIV screening NA for this visit Offered previously. GI: Reports lower abdominal pain, nausea, Denies vomiting. : Denies pain with urination. Derm: Skin is pink, warm & dry. Historical: - Allergies: no known allergies; - Home Meds: 1. none - PMHx: none; - PSHx: none; - Social history: Smoking status: Patient uses tobacco products, current every day smoker. No barriers to communication noted, The patient speaks fluent Anguillan, Speaks appropriately for age. - Family history: Not pertinent. - : The pt / caregiver states he / she is not on anticoagulants. Home medication list is obtained from the patient. - Exposure Risk Screening:: None identified. Screenin:16 Screening information is obtained from the patient. Fall risk: No risks identified. jmb Assistance ADL's: requires no assistance with activities of daily living. Abuse/DV Screen: The patient / caregiver reports he/she is: not in a situation that causes fear, pain or injury. Nutritional screening: No deficits noted. home support is adequate. 23:53 Advance Directives: Currently, there is no health care proxy. There is no active DNR cp1 order. Assessment: 22:16 General: Appears in no apparent distress, Behavior is appropriate for age, cooperative. jmb Pain: Location: pelvis Pain currently is 3 out of 10 on a pain scale. Neurological: Level of Consciousness is awake, alert, obeys commands, Oriented to person, place, time, Speech is normal, Facial symmetry appears normal, Facial symmetry: tongue is midline. Cardiovascular: Capillary refill < 3 seconds Heart tones present Pulses are all present. Rhythm is regular. Respiratory: Airway is patent Respiratory effort is even, unlabored, Respiratory pattern is regular, symmetrical, Breath sounds are clear bilaterally. GI: Abdomen is non- distended Bowel sounds present X 4 quads. Abd is soft X 4 quads. Derm: Skin is pink, warm & dry. Musculoskeletal: Range of motion intact in all extremities. 23:05 General: Appears in no apparent distress, comfortable, Behavior is appropriate for age, jmb cooperative. Neurological: Level of Consciousness is awake, alert, obeys commands, Oriented to person, place, time. Respiratory: Airway is patent Respiratory effort is even, unlabored, Respiratory pattern is regular, symmetrical. Vital Signs: 17:56 BP 138 / 80; Pulse 74; Resp 18 S; Temp 99.3(O); Pulse Ox 100% on R/A; Weight 78.47 kg gr2 (R); Height 5 ft. 6 in. (167.64 cm) (R); Pain 6/10; 19:35 BP 126 / 76; Pulse 55; Resp 18; Temp 98.7(TE); Pulse Ox 98% on R/A; Pain 7/10; ar3 23:52 BP 135 / 67; Pulse 66; Resp 18; Temp 97.9(O); Pulse Ox 97% on R/A; Pain 3/10; cp1 17:56 Body Mass Index 27.92 (78.47 kg, 167.64 cm) gr2 Vitals: 17:56 Log In Time: December 17, 2016 at 17:56. gr2 ED Course: 17:56 Patient visited by Finn Pierre. gr2 17:56 Ari Kelly is Private Physician. gr2 17:56 Patient moved to Waiting gr2 17:58 Patient visited by Finn Pierre. gr2 17:58 Patient moved to Pre RCE gr2 18:06 Triage Initiated ead 19:37 Patient visited by Haley Thomas PCA. ar3 19:45 UA Sent. bnb 20:14 Patient moved to Triage 1 ms18 20:29 Son Bernard RPA-C is PHCP. ck7 20:29 Eduin William DO is Attending Physician. ck7 20:29 Patient visited by Son Bernard RPA-C. ck7 20:45 Patient moved to I5 / M5 ar3 20:45 Urine Culture Sent. ar3 20:59 Amylase Sent. cp1 20:59 Basic Metabolic Profile Sent. cp1 20:59 CBC with Diff Sent. cp1 20:59 Lipase Sent. cp1 20:59 Liver Profile Sent. cp1 20:59 Inserted saline lock: 20 gauge in left antecubital area and blood collected. The cp1 patient tolerated the procedure well. 21:04 Patient visited by Son Bernard RPA-C. ck7 21:40 Patient visited by Son Bernard RPA-C. ck7 21:47 [facility] Payment Agreement was scanned into [employer] and attached to record. zo 22:16 The patient / caregiver is instructed regarding the plan of care and ED course. jmb 22:16 No procedures done that require assistance. jmb 22:17 Patient visited by Jaren Abebe RN. jmb 22:34 Patient visited by Goldie Blake LPN. cp1 23:05 Patient visited by Jaren Abebe RN. jmb 23:08 CT ABD & PELVIS: IV Contrast Only Returned. EDMS 23:36 Patient visited by Son Bernard RPA-C. ck7 23:43 Ari Kelly is Referral Physician. ck7 23:53 Discontinued lock bleeding controlled, pressure dressing applied, No redness/swelling cp1 at site. 12/18 10:56 T-Sheet-- Draft Copy was scanned into [employer] and attached to record. gb 10:56 Radiology Report was scanned into [employer] and attached to record. gb Administered Medications: 12/17 21:12 Drug: NS 0.9% 1000 ml [sodium chloride 0.9 % intravenous solution] Route: IV; Rate: jmb bolus; Site: left antecubital; 23:53 Follow up: IV Status: Completed infusion cp1 21:12 Drug: ketorolac 30 mg [ketorolac 30 mg/mL (1 mL) injection solution (1 mL)] Route: IVP; jmb Site: left antecubital; 22:34 Follow up: Response: Pain is decreased cp1 23:53 Follow up: Response: Pain is decreased cp1 23:44 Drug: traMADol 50mg- 4 pack 1 packets [tramadol 50 mg tablet (1 tabs)] {Co-Signature: cp1 kem (Jaren Abebe RN).} Route: PO; 23:53 Follow up: Response: Pt left department before re-evaluation is appropriate cp1 Order Results: Lab Order: UA; SPEC'M 12/17/16 19:43 Test: APPEARANCE, URINE; Value: CLEAR; Range: CLEAR; Status: F Test: COLOR, URINE; Value: STRAW; Range: YELLOW; Status: F Test: PH,URINE; Value: 6.0; Range: 5.0-9.0; Units: UNITS; Status: F Test: SPECIFIC GRAVITY URINE AUTO; Value: 1.006; Range: 1.002-1.035; Status: F Test: PROTEIN, URINE AUTO; Value: NEGATIVE; Range: NEGATIVE; Units: mg/dL; Status: F Test: GLUCOSE, URINE (UA) AUTO; Value: NEGATIVE; Range: NEGATIVE; Units: mg/dL; Status: F Test: KETONE, URINE AUTO; Value: NEGATIVE; Range: NEGATIVE; Units: mg/dL; Status: F Test: UROBILINOGEN, URINE AUTO; Value: 0.2; Range: 0.0-2.0; Units: mg/dL; Status: F Test: BILIRUBIN, URINE AUTO; Value: NEGATIVE; Range: NEGATIVE; Status: F Test: NITRITE, URINE AUTO; Value: NEGATIVE; Range: NEGATIVE; Status: F Test: LEUKOCYTE ESTERASE, URINE AUTO; Value: NEGATIVE; Range: NEGATIVE; Status: F Test: BLOOD, URINE BLOOD; Value: 1+; Range: NEGATIVE; Abnormal: Above high normal; Status: F Test: WBC, URINE AUTO; Value: 0; Range: 0-3; Units: /HPF; Status: F Test: RBC, URINE AUTO; Value: 3; Range: 0-3; Units: /HPF; Status: F Test: BACTERIA, URINE AUTO; Value: NEGATIVE; Range: NEGATIVE; Status: F Test: SQUAMOUS EPITHELIAL CELL UR AU; Value: 0; Range: 0-6; Units: /HPF; Status: F Test: HYALINE CAST, URINE AUTO; Value: 0; Range: 0-1; Units: /LPF; Status: F Lab Order: Urine Culture; [facility] 12/17/16 19:38 Test: URINE CULTURE; Value: URINE CULTURE RESULT NO GROWTH; Status: F Lab Order: Amylase; [facility] 12/17/16 20:47 Test: AMYLASE; Value: 49; Range: 25-115; Units: U/L; Status: F Lab Order: Basic Metabolic Profile; [facility] 12/17/16 20:47 Test: GLUCOSE, FASTING; Value: 88; Range: 70-105; Units: MG/DL; Status: F Test: BLOOD UREA NITROGEN; Value: 14; Range: 7-18; Units: MG/DL; Status: F Test: CREATININE FOR GFR; Value: 1.02; Range: 0.70-1.30; Units: MG/DL; Status: F Test: GLOMERULAR FILTRATION RATE; Value: > 60.0; Range: >60; Status: F Test: SODIUM LEVEL; Value: 142; Range: 136-145; Units: MEQ/L; Status: F Test: POTASSIUM SERUM; Value: 4.1; Range: 3.5-5.1; Units: MEQ/L; Status: F Test: CHLORIDE LEVEL; Value: 104; Range: 98-107; Units: MEQ/L; Status: F Test: CARBON DIOXIDE LEVEL; Value: 30; Range: 21-32; Units: MEQ/L; Status: F Test: ANION GAP; Value: 8; Range: 8-16; Units: MEQ/L; Status: F Test: CALCIUM LEVEL; Value: 9.1; Range: 8.5-10.1; Units: MG/DL; Status: F Test Note: ; Units are mL/min/1.73 m2 Chronic Kidney Disease Staging per NKF: Stage I & II GFR >=60 Normal to Mildly Decreased Stage III GFR 30-59 Moderately Decreased Stage IV GFR 15-29 Severely Decreased Stage V GFR <15 Very Little GFR Left ESRD GFR <15 on [place] Lab Order: CBC with Diff; FERMIN'Emmy 12/17/16 20:47 Test: WHITE BLOOD COUNT; Value: 7.2; Range: 4.0-10.0; Units: K/mm3; Status: F Test: RED BLOOD COUNT; Value: 5.20; Range: 4.30-6.10; Units: M/mm3; Status: F Test: HEMOGLOBIN; Value: 16.8; Range: 14.0-18.0; Units: g/dl; Status: F Test: HEMATOCRIT; Value: 46.7; Range: 42.0-52.0; Units: %; Status: F Test: MEAN CORPUSCULAR VOLUME; Value: 89.9; Range: 80.0-96.0; Units: fl; Status: F Test: MEAN CORPUSCULAR HEMOGLOBIN; Value: 32.3; Range: 27.0-33.0; Units: pg; Status: F Test: MEAN CORPUSCULAR HGB CONC; Value: 36.0; Range: 32.0-36.5; Units: g/dl; Status: F Test: RED CELL DISTRIBUTION WIDTH; Value: 12.0; Range: 11.5-14.5; Units: %; Status: F Test: PLATELET COUNT, AUTOMATED; Value: 189; Range: 150-450; Units: k/mm3; Status: F Test: NEUTROPHILS %; Value: 66.1; Range: 36.0-66.0; Abnormal: Above high normal; Units: %; Status: F Test: LYMPH %; Value: 25.1; Range: 24.0-44.0; Units: %; Status: F Test: MONO %; Value: 4.1; Range: 0.0-5.0; Units: %; Status: F Test: EOS %; Value: 2.6; Range: 0.0-3.0; Units: %; Status: F Test: BASO %; Value: 0.4; Range: 0.0-1.0; Units: %; Status: F Test: LARGE UNSTAINED CELL %; Value: 1.7; Range: 0.0-4.0; Units: %; Status: F Test: NEUTROPHILS #; Value: 4.8; Range: 1.8-7.7; Units: K/mm3; Status: F Test: LYMPH #; Value: 1.8; Range: 1.5-4.5; Units: K/mm3; Status: F Test: MONO #; Value: 0.3; Range: 0.0-0.8; Units: K/mm3; Status: F Test: EOS #; Value: 0.2; Range: 0.0-0.50; Units: K/mm3; Status: F Test: BASO #; Value: 0.0; Range: 0.0-0.2; Units: K/mm3; Status: F Test: LARGE UNSTAINED CELL #; Value: 0.1; Range: 0.0-0.4; Units: K/mm3; Status: F Lab Order: Lipase; SPEC'M 12/17/16 20:47 Test: LIPASE; Value: 85; Range: 73-393; Units: U/L; Status: F Lab Order: Liver Profile; SPEC'M 12/17/16 20:47 Test: AST/SGOT; Value: 23; Range: 15-37; Units: U/L; Status: F Test: ALT/SGPT; Value: 47; Range: 12-78; Units: U/L; Status: F Test: ALKALINE PHOSPHATASE; Value: 68; Range: 45-117; Units: U/L; Status: F Test: BILIRUBIN,TOTAL; Value: 0.5; Range: 0.2-1.0; Units: MG/DL; Status: F Test: BILIRUBIN,DIRECT; Value: 0.1; Range: 0.0-0.2; Units: MG/DL; Status: F Test: TOTAL PROTEIN; Value: 7.1; Range: 6.4-8.2; Units: GM/DL; Status: F Test: ALBUMIN; Value: 4.4; Range: 3.2-5.2; Units: GM/DL; Status: F Test: ALBUMIN/GLOBULIN RATIO; Value: 1.63; Range: 1.00-1.93; Status: F Radiology Order: CT ABD & PELVIS: IV Contrast Only Test: CT ABD & PELVIS: IV Contrast Only REASON FOR EXAMINATION: R/O INGUINAL HERNIA; ; CT of the abdomen and pelvis with contrast; Clinical statement: Pain. Rule out inguinal hernia.; Technique: Multiple axial CT images were obtained from the base of the lungs through the floor of the; pelvis utilizing 5 mm axial slices after administration of nonionic intravenous contrast. Coronal an; d sagittal reconstructions were also obtained.; No comparison is available.; Findings:; Chest: The visualized lung bases are clear.; Abdomen: The liver, spleen, pancreas, kidneys, gallbladder, and adrenal glands are unremarkable. The; aorta is within normal limits. There is no evidence of abdominal lymphadenopathy or ascites.; Pelvis: The bowel is unremarkable, with no obstructive or inflammatory changes. The appendix is get; l. The urinary bladder is within normal limits. The other pelvic structures appear grossly intact. Th; ere is no evidence of pelvic lymphadenopathy or ascites. There is no evidence of any hernias.; Bones: There are no suspicious osseous abnormalities seen.; Impression: Unremarkable CT examination of the abdomen and pelvis.; ; Outcome: 23:43 Discharge ordered by Provider. ck7 23:54 Discharge Assessment: Patient awake, alert and oriented x 3. No cognitive and/or cp1 functional deficits noted. Patient verbalized understanding of disposition instructions. patient administered narcotics - no. The following High Risk Discharge criteria are identified: None. Discharged to home ambulatory. Condition: stable Condition: improved. Discharge instructions given to patient, Instructed on discharge instructions, follow up and referral plans. medication usage, no driving heavy equipment, Demonstrated understanding of instructions, medications, Pt was receptive of discharge instructions/ teaching. Prescriptions given X 2. CT Study completed. Property sent home with patient. :Personal belongings accompany Pt. 23:54 Patient left the ED. cp1 Signatures: Dispatcher [employer] EDMS Claire Hagen, Reg Reg gb Reed, Amadou zo Yvonne Thomasa, PATENT CLERK PATENT CLERK ar3 Goldie Blake,FRAME STRIPPER AND CRUSHER FRAME STRIPPER AND CRUSHER cp1 Son Bernard, RPA-C RPA-Cck7 Finn Pierre gr2 Jaren Abebe,Gauri Mtz RN,RN RN ead Tanna RosarioRN RN ms18 Eve Abebe, PATENT CLERK PATENT CLERK bnb Jaren Abebe RN jmb Chart Complete MTDD
--- NOTE | 2016-12-20 00:55 | EDDOCDS ---
Physician Documentation [facility] Name: Jenaro Wong Age: 36 yrs Sex: Male : 1980 Arrival Date: 12/17/2016 Time: 17:55 Bed I5 / M5 Private MD: Ari Kelly Disposition: 12/17/16 23:43 Discharged to Home/Self Care. Impression: Lower abdominal pain, unspecified - RIGHT, POSSIBLE MUSCLE STRAIN. - Condition is Stable. - Discharge Instructions: Abdominal Pain, Adult. - Prescriptions for Ibuprofen 600 mg Oral Tablet - take 1 tablet by ORAL route every 6 hours As needed take with food; 30 tablet. Tramadol 50 mg Oral Tablet - take 1 tablet by ORAL route 4 times per day As needed MDD: 4 tabs; 10 tablet. - Medication Reconciliation, Local Pharmacy Hours form. - Follow up: Ari Kelly; When: 2 - 3 days; Reason: Recheck today's complaints, Continuance of care. - Problem is new. - Symptoms have improved. - Notes: USE MEDICATIONS INSTRUTCED, FOLLOW UP WITH YOUR DOCTOR, RETURN TO THE ER IF THE SYMPTOMS WORSEN OR BECOME CONCERNING Historical: - Allergies: no known allergies; - Home Meds: 1. none - PMHx: none; - PSHx: none; - Social history: Smoking status: Patient uses tobacco products, current every day smoker. No barriers to communication noted, The patient speaks fluent Palauan, Speaks appropriately for age. - Family history: Not pertinent. - : The pt / caregiver states he / she is not on anticoagulants. Home medication list is obtained from the patient. - Exposure Risk Screening:: None identified. Vital Signs: 12/17 17:56 BP 138 / 80; Pulse 74; Resp 18 S; Temp 99.3(O); Pulse Ox 100% on R/A; Weight 78.47 kg / gr2 173 lbs (R); Height 5 ft. 6 in. (167.64 cm) (R); Pain 6/10; 19:35 BP 126 / 76; Pulse 55; Resp 18; Temp 98.7(TE); Pulse Ox 98% on R/A; Pain 7/10; ar3 23:52 BP 135 / 67; Pulse 66; Resp 18; Temp 97.9(O); Pulse Ox 97% on R/A; Pain 3/10; cp1 17:56 Body Mass Index 27.92 (78.47 kg, 167.64 cm) gr2 MDM: 19:38 UA Ordered. EDMS 20:30 UA Reviewed. ck7 20:42 Undress patient appropriately for examination ordered. ck7 20:42 IV Saline Lock ordered. ck7 20:42 NS 0.9% 1000 ml IV at bolus once ordered. ck7 20:42 ketorolac 30 mg IVP once ordered. ck7 20:43 Amylase Ordered. EDMS 20:43 Basic Metabolic Profile Ordered. EDMS 20:43 CBC with Diff Ordered. EDMS 20:43 Lipase Ordered. EDMS 20:43 Liver Profile Ordered. EDMS 20:43 Urine Culture Ordered. EDMS 20:44 NOTHING BY MOUTH+DIET ordered. EDMS 20:44 CT ABD & PELVIS: IV Contrast Only Ordered. EDMS 21:40 CBC with Diff Reviewed. ck7 21:40 Amylase Reviewed. ck7 21:40 Basic Metabolic Profile Reviewed. ck7 21:40 Lipase Reviewed. ck7 21:40 Liver Profile Reviewed. ck7 21:46 Financial registration complete. zo 21:47 [facility] Payment Agreement was scanned into [employer] and attached to record. zo 23:22 CT ABD & PELVIS: IV Contrast Only Reviewed. ck7 23:37 traMADol 50mg- 4 pack 1 packets PO Per protocol; Dispense with patient. Take per ck7 package instructions. ordered. 12/18 10:56 T-Sheet-- Draft Copy was scanned into [employer] and attached to record. gb 10:56 Radiology Report was scanned into [employer] and attached to record. gb Administered Medications: 12/17 21:12 Drug: NS 0.9% 1000 ml [sodium chloride 0.9 % intravenous solution] Route: IV; Rate: jmb bolus; Site: left antecubital; 23:53 Follow up: IV Status: Completed infusion cp1 21:12 Drug: ketorolac 30 mg [ketorolac 30 mg/mL (1 mL) injection solution (1 mL)] Route: IVP; jmb Site: left antecubital; 22:34 Follow up: Response: Pain is decreased cp1 23:53 Follow up: Response: Pain is decreased cp1 23:44 Drug: traMADol 50mg- 4 pack 1 packets [tramadol 50 mg tablet (1 tabs)] {Co-Signature: cp1 jmb (Jaren Abebe RN).} Route: PO; 23:53 Follow up: Response: Pt left department before re-evaluation is appropriate cp1 Signatures: Dispatcher [employer] EDClaire Martinez, Reg Reg gb Reed, Goldie Brennan,LOCKSTITCH HEMMER LOCKSTITCH HEMMER cp1 Son Bernard, RPA-C RPA-Cck7 Jaren AbebeRN RN priscab Gauri Valdivia RN RN bruno brownlee The chart was reviewed and I authenticate all verbal orders and agree with the evaluation and treatment provided.Attachments: 21:47 [facility] Payment Agreement zo 12/18 10:56 T-Sheet-- Draft Copy gb Chart Complete MTDD
== END 2016-12-17 23:54 | disposition home or self-care (01) ==
LOC: M ED 17:55
DX: R10.9 Unspecified abdominal pain (principal); F17.200 Nicotine dependence, unspecified, uncomplicated
CPT/HCPCS: 36415; 74177; 80048; 80076; 81001; 82150; 83690; 85025; 87086; 96361; 96374; 99284; J1885; Q9967

== ENCOUNTER → 2016-12-28 | Outpatient (CLI) | payer OTHER ==
--- NOTE | 2016-12-28 14:02 | REP ---
INGUINAL ULTRASOUND: Bilateral inguinal ultrasound performed. The patient has had groin pain since December 10, 2016. There is a right inguinal hernia present. The diameter of the hernia with Valsalva maneuver is 7 mm. There is a small amount of fat extending into the hernia but no bowel is seen within the hernia. The hernia is reducible with transducer pressure. No left inguinal hernia is seen. IMPRESSION: Very small right inguinal hernia with Valsalva maneuver, containing fat. The hernia is reducible. No left inguinal hernia. Signed by Pasquale Stratton MD 12/28/2016 04:28 P
== END ==
LOC: M RAD 11:53
PROVIDERS: ATTEND Surgery
DX: K40.90 Unilateral inguinal hernia, without obstruction or gangrene, not specified as recurrent (principal); R10.31 Right lower quadrant pain

== ENCOUNTER → 2017-02-13 | Day surgery (SDC) | payer OTHER ==
[~2017-02-13] VITALS: Ht 167.6 cm; Wt 79.8 kg
[~2017-02-13] MED LIST: BUPIVACAINE/EPIN 0.25% 30 ML VIAL As Ordered ONE; GLYCOPYRROLATE INJ 0.2 MG/ML 2 ML VIAL As Ordered ONE; KETOROLAC 60 MG/2 ML VIAL (J1885) As Ordered ONE; LIDOCAINE 2% INJ 100 MG/5 ML SDV (FOR ANES.) As Ordered ONE; LR 1,000 ML IV SCH; MIDAZOLAM INJ 2 MG/2 ML VIAL (J2250) As Ordered ONE; NEOSTIGMINE 1MG/ML 5 ML SYRINGE (J2710) As Ordered ONE; NORCO, ANEXSIA 5/325MG TABLET (HYDROcodone/ACETAMINOPHEN) PO PRN; ONDANSETRON 4MG/2ML VIAL (J2405) As Ordered ONE; ONDANSETRON 4MG/2ML VIAL (J2405) IV PRN; PROPOFOL 200 MG/20 ML VIAL As Ordered ONE; ROCURONIUM BROMIDE 50 MG/5 ML VIAL As Ordered ONE; fentaNYL 100 MCG/2 ML INJECTION (J3010) As Ordered ONE
[2017-02-13] MEDS: fentaNYL 100 MCG/2 ML INJECTION (J3010) IV PRN ×4 (11:35→11:50)
[2017-02-13 13:20] VITALS: BP 137/88
--- NOTE | 2017-02-14 09:34 | RO ---
DATE OF PROCEDURE: 02/13/2017 PREOPERATIVE DIAGNOSIS: Right inguinal hernia. POSTOPERATIVE DIAGNOSIS: Right inguinal hernia. PROCEDURE: Laparoscopic right inguinal hernia repair. SURGEON: Pasquale Lindsey DO CTRS: Moris White MD ANESTHESIA: General. ESTIMATED BLOOD LOSS (EBL): 5. COMPLICATIONS: None. INDICATION FOR PROCEDURE: The patient is a 36-year-old male who had any injury at work that caused him significant right groin pain. He had an ultrasound, which confirmed the diagnosis of a right inguinal hernia. Recommendation to proceed with laparoscopic, possible open, right inguinal hernia repair. The risks and benefits of the procedure not limited to but including bleeding, infection, hernia recurrence, damage to surrounding structures, need for further surgery were discussed in detail with the patient. Informed consent was obtained and procedure was planned. DESCRIPTION OF PROCEDURE: The patient brought back to operating room #3 after sufficient sedation. The abdomen was sterilely prepped and draped, and a Talamantes catheter was placed. Next, time-out was done confirm proper patient and proper procedure. Following that, a 2 cm infraumbilical incision was made. The incision was carried down to level of the fascia. The fascia was opened just to the left of midline using electrocautery. The preperitoneal space was entered and balloon dissected. Once the balloon dissector was completed, the balloon dissector was removed and replaced with a 10 mm balloon port. Two more 5 mm ports were placed in the midline in between the pubic symphysis and the umbilicus, on the right side, the hernia sac was identified, along with the cord structures. The hernia sac was elevated up. Cord structures were carefully dissected free from it. Once the peritoneum was carefully dissected free both posteriorly and laterally, a Bard 3DMax large mesh was rolled up and placed inside the preperitoneal space, tacked to the midline of the pubic symphysis, unrolled laterally. The hernia sac was placed on top of the mesh and held in place under direct visualization while the preperitoneal space was desufflated. Once this was completed, the ports were removed. The fascia and the umbilical port site was closed with [id number]-op-[id number] 0 Vicryl suture. Skin incision closed with 4-0 Vicryl subcuticular sutures. The abdomen was cleaned and dried. Steri-Strips, 4 x 4, and tape were applied, thus ending the procedure.
== END | disposition home or self-care (01) ==
LOC: M SDC 08:43
PROVIDERS: ATTEND Surgery
DX: K40.90 Unilateral inguinal hernia, without obstruction or gangrene, not specified as recurrent (principal); Z87.891 Personal history of nicotine dependence
CPT/HCPCS: 49650; C1781; J0690; J1885; J2250; J2405; J2710; J3010

== ENCOUNTER → 2017-11-14 | Outpatient (CLI) | payer BC ==
--- NOTE | 2017-11-14 16:34 | REP ---
CHEST: Two views. No comparison. There is no evidence of acute infiltrate. No pleural effusion is seen. The heart is normal in size. The mediastinal silhouette is unremarkable. The visualized osseous structures are intact. IMPRESSION: No acute pulmonary disease.
== END ==
LOC: M CLY 12:14
PROVIDERS: ATTEND Family Medicine
DX: R05 Cough (principal)

== ENCOUNTER → 2018-04-22 | Outpatient (REF) | payer BC ==
[2018-04-22 11:22] LABS: BASO % 0.5 % (0.0-1.0); EOS # 0.1 10^3/uL (0.0-0.50); EOS % 1.7 % (0.0-3.0); HEMATOCRIT 48.7 % (42.0-52.0); IMMATURE GRANULOCYTE % 0.3 % (0-3.0); LYMPH # 1.5 10^3/uL (1.5-4.5); LYMPH % 25.3 % (24.0-44.0); MEAN CORPUSCULAR HEMOGLOBIN 32.4 pg (27.0-33.0); MEAN CORPUSCULAR HGB CONC 34.9 g/dl (32.0-36.5); MEAN CORPUSCULAR VOLUME 92.8 fl (80.0-96.0); MONO # 0.4 10^3/uL (0.0-0.8); MONO % 7.3 % (0.0-5.0); NEUTROPHILS # 3.9 10^3/uL (1.8-7.7); NEUTROPHILS % 64.9 % (36.0-66.0); PLATELET COUNT, AUTOMATED 178 10^3/uL (150-450); RED BLOOD COUNT 5.25 10^6/uL (4.30-6.10); RED CELL DISTRIBUTION WIDTH 12.1 % (11.5-14.5); WHITE BLOOD COUNT 5.9 10^3/uL (4.0-10.0)
[2018-04-22 11:46] LABS: ALBUMIN 4.5 GM/DL (3.2-5.2); ALBUMIN/GLOBULIN RATIO 1.55 (1.00-1.93); ALKALINE PHOSPHATASE 66 U/L (45-117); ALT/SGPT 44 U/L (12-78); ANION GAP 6 MEQ/L (8-16); AST/SGOT 21 U/L (7-37); BILIRUBIN,TOTAL 0.7 MG/DL (0.2-1.0); BLOOD UREA NITROGEN 19 MG/DL (7-18); C REACTIVE PROTEIN QUANTITATIV < 0.30 MG/DL (0.00-0.30); CALCIUM LEVEL 9.3 MG/DL (8.5-10.1); CARBON DIOXIDE LEVEL 28 MEQ/L (21-32); CHLORIDE LEVEL 105 MEQ/L (98-107); CHOLESTEROL LEVEL 233 MG/DL (<200); CHOLESTEROL RISK RATIO 5.825 (<5); GLOMERULAR FILTRATION RATE > 60.0 (>60); GLUCOSE, FASTING 95 MG/DL (70-100); HDL CHOLESTEROL 40 MG/DL (>40); LDL CHOLESTEROL 147.8 MG/DL (<100); NON-HDL-C 193 MG/DL; POTASSIUM SERUM 4.4 MEQ/L (3.5-5.1); SODIUM LEVEL 139 MEQ/L (136-145); THYROXINE (T4) 7.5 UG/DL (4.5-12.0); TOTAL PROTEIN 7.4 GM/DL (6.4-8.2); TRIGLYCERIDES LEVEL 226 MG/DL (<150)
[2018-04-22 12:11] LABS: ERYTHROCYTE SEDIMENTATION RATE 1 mm/hr (0-15)
[2018-04-24 00:11] LABS: Lyme Disease IgG/IgM Antibodie <0.91 ISR (0.00-0.90); Lyme Disease IgM Ab Quantitati <0.80 index (0.00-0.79)
[2018-04-25 00:10] LABS: ANA (HEP2) Negative (.); VITAMIN D 1,25 DIHYDROXY 43.6 pg/mL (19.9-79.3)
[2018-04-25 00:10] LABS: CYCLIC CITRULLINATED PEPTIDE 3 units (0-19)
== END ==
LOC: M SFHCCLAY 07:45
DX: Z13.220 Encounter for screening for lipoid disorders (principal); R53.81 Other malaise; R53.82 Chronic fatigue, unspecified; R63.4 Abnormal weight loss
CPT/HCPCS: 84403

== ENCOUNTER 2018-07-02 12:41 | Emergency (ER) | payer OTHER, BC | END 2018-07-02 14:24 | disposition home or self-care (01) | LOC: M ED 12:41 | DX: M54.6 Pain in thoracic spine (principal); F17.210 Nicotine dependence, cigarettes, uncomplicated; Z79.899 Other long term (current) drug therapy | CPT/HCPCS: 99283 ==

== ENCOUNTER → 2018-12-08 | Outpatient (REF) | payer OTHER, BC ==
[~2018-12-08] MED LIST changes: +ALEV220C2 PO; -BUPIVACAINE/EPIN 0.25% 30 ML VIAL As Ordered ONE; +BUPR150T3; -GLYCOPYRROLATE INJ 0.2 MG/ML 2 ML VIAL As Ordered ONE; -KETOROLAC 60 MG/2 ML VIAL (J1885) As Ordered ONE; -LIDOCAINE 2% INJ 100 MG/5 ML SDV (FOR ANES.) As Ordered ONE; -LR 1,000 ML IV SCH; -MIDAZOLAM INJ 2 MG/2 ML VIAL (J2250) As Ordered ONE; -NEOSTIGMINE 1MG/ML 5 ML SYRINGE (J2710) As Ordered ONE; -NORCO, ANEXSIA 5/325MG TABLET (HYDROcodone/ACETAMINOPHEN) PO PRN; -ONDANSETRON 4MG/2ML VIAL (J2405) As Ordered ONE; -ONDANSETRON 4MG/2ML VIAL (J2405) IV PRN; +PRED10TA2 PO; -PROPOFOL 200 MG/20 ML VIAL As Ordered ONE; +ROBA500T PO; -ROCURONIUM BROMIDE 50 MG/5 ML VIAL As Ordered ONE; -fentaNYL 100 MCG/2 ML INJECTION (J3010) As Ordered ONE
[2018-12-08 16:25] LABS: INR 0.98; PROTHROMBIN TIME 13.1 SECONDS (12.1-14.4)
== END ==
LOC: M LABDRAW1 15:34
PROVIDERS: ATTEND Physician Assistant
DX: Z01.812 Encounter for preprocedural laboratory examination (principal)

== ENCOUNTER → 2019-07-16 | Outpatient (REF) | payer OTHER, BC ==
[2019-07-16 12:50] LABS: PLATELET COUNT, AUTOMATED 169 10^3/uL (150-450)
[2019-07-16 12:59] LABS: INR 0.96; PROTHROMBIN TIME 12.5 SECONDS (11.8-14.0)
[2019-07-16 13:00] LABS: PARTIAL THROMBOPLASTIN TIME 26.9 SECONDS (25.0-38.4)
== END ==
LOC: M LABDRAW1 10:55
PROVIDERS: ATTEND Physician Assistant
DX: Z01.812 Encounter for preprocedural laboratory examination (principal)

== ENCOUNTER → 2020-05-03 | Outpatient (CLI) | payer OTHER, BC | LOC: M LABSMTC 12:03 | PROVIDERS: ATTEND Physician Assistant | DX: Z11.59 Encounter for screening for other viral diseases (principal) ==

== ENCOUNTER → 2020-08-10 | Outpatient (CLI) | payer OTHER | LOC: M LABSMTC 10:32 | PROVIDERS: ATTEND Physical Medicine & Rehabilitation | DX: Z01.812 Encounter for preprocedural laboratory examination (principal) ==

== ENCOUNTER → 2020-08-10 | Outpatient (CLI) | payer OTHER ==
[2020-08-10 15:28] LABS: INR 0.93; PROTHROMBIN TIME 12.6 SECONDS (11.8-14.0)
[2020-08-10 15:29] LABS: PARTIAL THROMBOPLASTIN TIME 27.6 SECONDS (25.0-38.4)
[2020-08-10 15:31] LABS: PLATELET COUNT, AUTOMATED 172 10^3/uL (150-450)
== END ==
LOC: M PLALAB 10:19
PROVIDERS: ATTEND Physician Assistant
DX: M47.817 Spondylosis without myelopathy or radiculopathy, lumbosacral region (principal)

== ENCOUNTER → 2020-10-20 | Outpatient (REF) | payer BC | LOC: M LAB REF 15:46 | PROVIDERS: ATTEND Dermatology | DX: L81.4 Other melanin hyperpigmentation (principal) ==

== ENCOUNTER → 2020-11-02 | Outpatient (CLI) | payer OTHER | LOC: M LABSMTC 10:43 | PROVIDERS: ATTEND Physical Medicine & Rehabilitation | DX: Z20.818 Contact with and (suspected) exposure to other bacterial communicable diseases (principal) ==

== ENCOUNTER → 2020-11-24 | Outpatient (REF) | payer BC ==
[2020-11-24 13:13] LABS: BASO % 0.5 % (0.0-1.0); EOS # 0.2 10^3/uL (0.0-0.5); EOS % 3.3 % (0.0-3.0); HEMATOCRIT 47.2 % (42.0-52.0); HEMOGLOBIN 16.2 g/dl (13.5-17.5); LYMPH % 30.9 % (24.0-44.0); MEAN CORPUSCULAR HEMOGLOBIN 32.5 pg (27.0-33.0); MEAN CORPUSCULAR HGB CONC 34.3 g/dl (32.0-36.5); MEAN CORPUSCULAR VOLUME 94.6 fl (80.0-96.0); MONO # 0.5 10^3/uL (0.0-0.8); MONO % 8.1 % (0.0-5.0); NEUTROPHILS # 3.7 10^3/uL (1.5-8.5); NEUTROPHILS % 56.7 % (36.0-66.0); PLATELET COUNT, AUTOMATED 175 10^3/uL (150-450); RED BLOOD COUNT 4.99 10^6/uL (4.30-6.10); WHITE BLOOD COUNT 6.4 10^3/uL (4.0-10.0)
[2020-11-24 13:41] LABS: ALBUMIN 4.3 GM/DL (3.2-5.2); ALT/SGPT 82 U/L (12-78); BILIRUBIN,TOTAL 0.4 MG/DL (0.2-1.0); BLOOD UREA NITROGEN 14 MG/DL (7-18); CALCIUM LEVEL 9.7 MG/DL (8.5-10.1); CARBON DIOXIDE LEVEL 30 MEQ/L (21-32); CHLORIDE LEVEL 104 MEQ/L (98-107); CHOLESTEROL LEVEL 242 MG/DL (<200); CHOLESTEROL RISK RATIO 6.368 (<5); CREATININE FOR GFR 1.08 MG/DL (0.70-1.30); GLOMERULAR FILTRATION RATE > 60.0 (>60); GLUCOSE, FASTING 109 MG/DL (70-100); HDL CHOLESTEROL 38 MG/DL (>40); IRON (FE) 78 UG/DL (65-175); LDL CHOLESTEROL 136 MG/DL (<100); NON-HDL-C 204 MG/DL; POTASSIUM SERUM 4.2 MEQ/L (3.5-5.1); SODIUM LEVEL 139 MEQ/L (136-145); TOTAL PROTEIN 7.1 GM/DL (6.4-8.2); TRIGLYCERIDES LEVEL 339 MG/DL (<150)
[2020-11-24 14:37] LABS: VITAMIN B12 LEVEL 764 PG/ML (247-911)
[2020-11-24 14:38] LABS: FOLATE > 24.0 NG/ML (>5.4)
== END ==
LOC: M SFHCCLAY 08:29
PROVIDERS: ATTEND Family Medicine
DX: Z13.0 Encounter for screening for diseases of the blood and blood-forming organs and certain disorders involving the immune mechanism (principal); Z13.21 Encounter for screening for nutritional disorder; Z12.5 Encounter for screening for malignant neoplasm of prostate; E78.2 Mixed hyperlipidemia
CPT/HCPCS: 36415; 80053; 80061; 82607; 82652; 82746; 83540; 85025; G0103

== ENCOUNTER → 2021-03-21 | Outpatient (CLI) | payer OTHER ==
[~2021-03-21] MED LIST changes: +BUPR150T12; -BUPR150T3
--- NOTE | 2021-03-22 08:17 | REP ---
INDICATION: DDD THORACIC REGION. COMPARISON: MR lumbar spine 04/27/2020. TECHNIQUE: Sagittal T1, T2, STIR, axial T1 and T2 weighted MR images of the lumbar spine are obtained. FINDINGS: There is orkb-it-txccqhad multilevel degenerative disc disease with loss of disc height and disc desiccation seen diffusely throughout the lumbar spine. Vertebral heights are overall preserved. No malalignments. On the sagittal T2 weighted images, no limiting canal stenosis. Conus ends normally at L1 level. There is a transitional anatomy. In keeping with the prior reports, the transitional vertebrae labeled S1. Toes On the review of axial images: At L1-2 no significant canal or foraminal narrowing At L2-3 and L3-4 mild disc bulge with mild canal narrowing and mild bilateral foraminal narrowing. At L4-5 diffuse disc bulge with mild canal narrowing and mild bilateral foraminal narrowing. At L5-S1 diffuse disc bulge with mild canal narrowing and tvjk-li-wyyyjsyn bilateral foraminal narrowing. When compared to prior study 04/27/2020 and also 12/08/2019, no significant changes. IMPRESSION: 1. Jerb-ud-rawmvnzt multilevel degenerative disc disease. 2. No definite limiting canal or foraminal stenosis or disc herniation. 3. At L5-S1 diffuse disc bulge with mild canal narrowing and onzc-nz-ekforghp bilateral foraminal narrowing. 4. When compared to prior study 04/27/2020 and also 12/08/2019, no significant changes. <Electronically signed by José Luis Smiht > 03/22/21 0845
--- NOTE | 2021-03-22 08:29 | REP ---
INDICATION: DDD THORACIC REGION. COMPARISON: MRI thoracic spine 12/08/2019 TECHNIQUE: Sagittal T1, T2, STIR, axial T1 and T2 weighted MR images of the thoracic spine are obtained. FINDINGS: On the sagittal T2 weighted images, there is mild multilevel degenerative disc disease with loss of disc height and disc desiccation seen diffusely throughout the thoracic spine. Vertebral heights are overall preserved. No malalignments. No limiting canal stenosis. The thoracic cord appears normal in its course, caliber and signal characteristics. On the review of axial images, no limiting canal or foraminal stenosis or disc herniation. On the STIR images, no significant STIR signal abnormality to suggest soft tissue or ligamentous injury. When compared to prior study 12/08/2019, no significant changes. IMPRESSION: Minimal multilevel degenerative disc disease. No limiting canal or foraminal stenosis or disc herniation. When compared to prior study 12/08/2019, no significant changes. <Electronically signed by José Luis Smith > 03/22/21 [id number]
== END ==
LOC: M RAD 16:39
PROVIDERS: ATTEND Physician Assistant
DX: M51.34 Other intervertebral disc degeneration, thoracic region (principal); M51.27 Other intervertebral disc displacement, lumbosacral region

== ENCOUNTER → 2021-03-31 | Outpatient (REF) | payer OTHER ==
[2021-03-31 16:00] LABS: PLATELET COUNT, AUTOMATED 195 10^3/uL (150-450)
[2021-03-31 16:14] LABS: INR 1.02; PROTHROMBIN TIME 13.6 SECONDS (12.5-14.3)
[2021-03-31 16:15] LABS: PARTIAL THROMBOPLASTIN TIME 28.4 SECONDS (24.2-38.5)
== END ==
LOC: M LABDRAWC 15:45
PROVIDERS: ATTEND Physician Assistant
DX: M51.27 Other intervertebral disc displacement, lumbosacral region (principal)

== ENCOUNTER → 2021-09-14 | Outpatient (CLI) | payer OTHER ==
--- NOTE | 2021-09-14 17:27 | REP ---
INDICATION: R/O STENOSIS VS HNP. COMPARISON: 03/21/2021. TECHNIQUE: Multiple sequences obtained in the sagittal axial planes. FINDINGS: The vertebral bodies normal in height and well aligned with normal lumbar lordosis. There is sacralization of L5. There is loss of water signal and disc degeneration at L4-5. There is slight disc space narrowing at that level. There is a hemangioma in the L2 vertebral body. The conus is unremarkable. At the L4-5 level there is mild diffuse disc bulging asymmetrically more so to the right of midline. There appears to be a small tear of the annulus at this level. There is mild bilateral foraminal narrowing at this level, with mild impression mild the anterior thecal sac. There is no other evidence of significant disc bulging or herniation. There is no other evidence of spinal stenosis or foraminal narrowing. IMPRESSION: Stable findings as discussed in detail above. <Electronically signed by Pasquale Stratton > 09/14/21 [id number]
== END ==
LOC: M PLAIMG 08:29
PROVIDERS: ATTEND Physician Assistant
DX: M51.36 Other intervertebral disc degeneration, lumbar region (principal)

== ENCOUNTER → 2022-02-28 | Outpatient (CLI) | payer BC, OTHER ==
[2022-02-28 14:11] LABS: PLATELET COUNT, AUTOMATED 172 10^3/uL (150-450)
[2022-02-28 14:22] LABS: INR 0.94
[2022-02-28 14:23] LABS: PARTIAL THROMBOPLASTIN TIME 28.5 SECONDS (25.9-37.0)
== END ==
LOC: M PLALAB 10:52
PROVIDERS: ATTEND Physician Assistant
DX: M51.16 Intervertebral disc disorders with radiculopathy, lumbar region (principal)

== ENCOUNTER → 2022-07-17 | Outpatient (CLI) | payer OTHER | LOC: M LAB 15:34 | PROVIDERS: ATTEND Physical Medicine & Rehabilitation | DX: M51.17 Intervertebral disc disorders with radiculopathy, lumbosacral region (principal) ==

== ENCOUNTER → 2022-12-07 | Outpatient (REF) | payer OTHER ==
[2022-12-07 11:37] LABS: BASO % 0.8 % (0.0-1.0); EOS # 0.1 10^3/uL (0.0-0.5); EOS % 2.7 % (0.0-3.0); HEMATOCRIT 46.8 % (42.0-52.0); HEMOGLOBIN 16.2 g/dl (13.5-17.5); LYMPH # 1.4 10^3/uL (1.5-5.0); LYMPH % 25.7 % (24.0-44.0); MEAN CORPUSCULAR HGB CONC 34.6 g/dl (32.0-36.5); MEAN CORPUSCULAR VOLUME 95.3 fl (80.0-96.0); MONO # 0.4 10^3/uL (0.0-0.8); NEUTROPHILS # 3.3 10^3/uL (1.5-8.5); NEUTROPHILS % 62.6 % (36.0-66.0); PLATELET COUNT, AUTOMATED 193 10^3/uL (150-450); RED BLOOD COUNT 4.91 10^6/uL (4.30-6.10); WHITE BLOOD COUNT 5.3 10^3/uL (4.0-10.0)
[2022-12-07 12:08] LABS: ALBUMIN 4.3 G/DL (3.2-5.2); ALKALINE PHOSPHATASE 57 U/L (46-116); ALT/SGPT 31 U/L (7.0-40); AST/SGOT 24 U/L (<34); BILIRUBIN,TOTAL 0.7 MG/DL (0.3-1.2); BLOOD UREA NITROGEN 14 MG/DL (9-23); CALCIUM LEVEL 9.7 MG/DL (8.5-10.1); CARBON DIOXIDE LEVEL 31 MMOL/L (20-31); CHLORIDE LEVEL 104 MMOL/L (98-107); CHOLESTEROL LEVEL 192 MG/DL (<200); CHOLESTEROL RISK RATIO 4.62 (<5); CREATININE FOR GFR 0.95 MG/DL (0.70-1.30); GLOMERULAR FILTRATION RATE > 60.0 (>60); GLUCOSE, FASTING 83 MG/DL (60-100); HDL CHOLESTEROL 41.5 MG/DL (>40); LDL CHOLESTEROL 123.9 MG/DL (<100); NON-HDL-C 151 MG/DL; POTASSIUM SERUM 4.9 MMOL/L (3.5-5.1); SODIUM LEVEL 141 MMOL/L (136-145); TOTAL PROTEIN 6.5 G/DL (5.7-8.2); TRIGLYCERIDES LEVEL 133 MG/DL (<150)
== END ==
LOC: M SFHCCLAY 09:11
PROVIDERS: ATTEND Family Medicine
DX: E78.2 Mixed hyperlipidemia (principal)

== ENCOUNTER → 2023-01-05 | Outpatient (CLI) | payer OTHER | LOC: M RAD 12:38 | PROVIDERS: ATTEND Family Medicine | DX: G44.52 New daily persistent headache (NDPH) (principal) ==

== ENCOUNTER → 2023-09-19 | Outpatient (REF) | payer OTHER ==
[2023-09-19 17:33] LABS: BASO % 0.4 % (0.0-1.0); EOS # 0.1 10^3/uL (0.0-0.5); EOS % 1.8 % (0.0-3.0); HEMATOCRIT 44.8 % (42.0-52.0); HEMOGLOBIN 15.8 g/dl (13.5-17.5); LYMPH # 1.8 10^3/uL (1.5-5.0); LYMPH % 22.3 % (24.0-44.0); MEAN CORPUSCULAR HEMOGLOBIN 32.8 pg (27.0-33.0); MEAN CORPUSCULAR HGB CONC 35.3 g/dl (32.0-36.5); MEAN CORPUSCULAR VOLUME 93.1 fl (80.0-96.0); MONO # 0.5 10^3/uL (0.0-0.8); MONO % 6.8 % (2.0-8.0); NEUTROPHILS # 5.5 10^3/uL (1.5-8.5); NEUTROPHILS % 68.4 % (36.0-66.0); PLATELET COUNT, AUTOMATED 218 10^3/uL (150-450); RED BLOOD COUNT 4.81 10^6/uL (4.30-6.10)
[2023-09-19 18:00] LABS: ERYTHROCYTE SEDIMENTATION RATE 2 mm/hr (0-15)
[2023-09-21 23:07] LABS: ANA (HEP2) Negative (.); CYCLIC CITRULLINATED PEPTIDE 1 units (0-19); VITAMIN D 1,25 DIHYDROXY 54.7 pg/mL (24.8-81.5)
[2023-09-27 08:11] LABS: ALKALINE PHOSPHATASE 65 IU/L (44-121); ALT/SGPT 21 IU/L (0-32); AST/SGOT 23 IU/L (0-40); BILIRUBIN,TOTAL 0.4 MG/DL (0.0-1.2); BLOOD UREA NITROGEN 14 MG/DL (8-27); CARBON DIOXIDE LEVEL 23 mmol/L (20-29); CHLORIDE LEVEL 101 mmol/L (96-106); CREATININE FOR GFR 1.03 MG/DL (0.57-1.00); GLOMERULAR FILTRATION RATE > 60.0 (>59); GLUCOSE, FASTING 82 MG/DL (70-99); POTASSIUM SERUM 4.6 mmol/L (3.5-5.2); SODIUM LEVEL 139 mmol/L (134-144)
[2023-09-27 08:12] LABS: FREE T4 1.17 NG/DL (0.82-1.77); IRON (FE) 316 UG/DL (27-139); TOTAL PROTEIN 6.9 G/DL (6.0-8.5); URIC ACID 5.7 MG/DL (3.8-8.4)
[2023-09-27 08:13] LABS: VITAMIN B12 LEVEL 839 PG/ML (232-1245)
== END ==
LOC: M SFHCCLAY 11:04
PROVIDERS: ATTEND Family Medicine
DX: M25.571 Pain in right ankle and joints of right foot (principal); M79.10 Myalgia, unspecified site; Z13.21 Encounter for screening for nutritional disorder

== ENCOUNTER → 2023-10-14 | Outpatient (CLI) | payer OTHER ==
[2023-10-14 15:29] LABS: HEMATOCRIT 43.2 % (42.0-52.0); MEAN CORPUSCULAR HEMOGLOBIN 32.8 pg (27.0-33.0); MEAN CORPUSCULAR HGB CONC 34.7 g/dl (32.0-36.5); MEAN CORPUSCULAR VOLUME 94.5 fl (80.0-96.0); PLATELET COUNT, AUTOMATED 156 10^3/uL (150-450); RED BLOOD COUNT 4.57 10^6/uL (4.30-6.10); WHITE BLOOD COUNT 7.7 10^3/uL (4.0-10.0)
[2023-10-14 15:54] LABS: PERCENT SATURATION 27.2 % (19.7-50.0)
[2023-10-14 15:57] LABS: FERRITIN 77.8 NG/ML (10.5-307.3)
== END ==
LOC: M LAB 15:01
PROVIDERS: ATTEND Family Medicine
DX: E83.19 Other disorders of iron metabolism (principal)

== ENCOUNTER → 2024-02-11 | Outpatient (REF) | payer OTHER ==
[2024-02-11 12:38] LABS: INFLUENZA A AMPLIFICATION NEGATIVE (NEGATIVE); INFLUENZA B AMPLIFICATION NEGATIVE (NEGATIVE)
== END ==
LOC: M LAB REF 10:17
PROVIDERS: ATTEND Physician Assistant
DX: J06.9 Acute upper respiratory infection, unspecified (principal)

== ENCOUNTER → 2024-04-30 | Outpatient (CLI) | payer OTHER ==
[2024-04-30 13:56] LABS: AMPHETAMINES URINE REFLEX NEGATIVE (NEGATIVE); BARBITURATES URINE REFLEX NEGATIVE (NEGATIVE); BENZODIAZEPINES URINE REFLEX NEGATIVE (NEGATIVE); CANNABINOIDS URINE REFLEX NEGATIVE (NEGATIVE); COCAINE METABOLITE URINE REFLE NEGATIVE (NEGATIVE); METHADONE URINE REFLEX NEGATIVE (NEGATIVE); OPIATES URINE REFLEX NEGATIVE (NEGATIVE); PHENCYCLIDINE URINE REFLEX NEGATIVE (NEGATIVE)
== END ==
LOC: M LAB 13:03
PROVIDERS: ATTEND Physical Medicine & Rehabilitation
DX: M51.16 Intervertebral disc disorders with radiculopathy, lumbar region (principal)

== ENCOUNTER → 2024-06-09 | Outpatient (CLI) | payer OTHER ==
[~2024-06-09] MED LIST changes: +PROHANCE 279.3MG/ML 15ML VIAL As Ordered ONE
== END ==
LOC: M RAD 08:52
PROVIDERS: ATTEND Physical Medicine & Rehabilitation
DX: M51.17 Intervertebral disc disorders with radiculopathy, lumbosacral region (principal)
CPT/HCPCS: 72158; A9576

== ENCOUNTER → 2025-10-07 | Outpatient (CLI) | payer OTHER ==
[~2025-10-07] MED LIST changes: -PROHANCE 279.3MG/ML 15ML VIAL As Ordered ONE
== END ==
LOC: M PLAIMG 14:38
PROVIDERS: ATTEND Physician Assistant
DX: M51.17 Intervertebral disc disorders with radiculopathy, lumbosacral region (principal); M51.34 Other intervertebral disc degeneration, thoracic region